=== PATIENT | female | born 1950 | race Caucasian/White ===

== ENCOUNTER → 2021-05-07 | Outpatient (CLI) | payer MEDICARE, BC ==
--- NOTE | 2021-05-07 14:58 | Diagnostic Imaging Report ---
EXAMINATION: Right hand radiographs, 3 views. Left hand radiographs, 3 views. COMPARISON: None. HISTORY: 70-year-old female, bilateral hand pain. FINDINGS: Left hand. There is severe radiocarpal joint space loss. There is moderate to severe triscaphe arthritis. There are bone erosions involving the ulnar aspect of the base of the fifth metacarpal. There is mild joint space loss of the third metacarpophalangeal joint. The bones appear demineralized. Right hand. 2. Severe radiocarpal and intercarpal joint space loss. There is mild distal radial ulnar arthritis. There are subchondral cysts seen or erosions of the bases of the second, third, and fourth metacarpals. There is moderate joint space loss of the third metacarpophalangeal joint. The bones appear demineralized. There is no identified acute fracture. IMPRESSION: Advanced bilateral radiocarpal and intercarpal arthritis as well as arthritis of the bilateral third metacarpophalangeal joints with a symmetric appearance as well as bone demineralization and areas of potential bone erosions. Findings are most suspicious for rheumatoid arthritis. Dictated by: Dictated on workstation # [id number]
== END ==
LOC: ORTHO 10:38
PROVIDERS: ATTEND Orthopaedic Surgery
DX: M18.0 Bilateral primary osteoarthritis of first carpometacarpal joints (principal)
CPT/HCPCS: 20526; 73130; G0463

== ENCOUNTER → 2021-05-21 | Outpatient (CLI) | payer MEDICARE, BC | LOC: ORTHO 10:24 | PROVIDERS: ATTEND Orthopaedic Surgery | DX: G56.03 Carpal tunnel syndrome, bilateral upper limbs (principal) | CPT/HCPCS: 20526; G0463 ==